=== PATIENT | male | born 1950 | race Caucasian/White ===

== ENCOUNTER 2017-08-16 10:22 | Inpatient (IN) | payer OTHER ==
[2017-08-16] VITALS (12 sets, daily range): BP systolic 90–122; BP diastolic 50–74
[~2017-08-16] VITALS: Ht 172.7 cm; Wt 87.3 kg
[~2017-08-16 10:22] MED LIST: ALBUTEROL2.5 MG/0.5 INH; ANAPROX DS550 MG PO; ASPIRIN ADULT L81 M1 PO; DARVOCET N 1001 TAB PO; LASIX40 MG PO; LIPITOR80 MG PO; LOPRESSOR25 MG PO; NORVASC10 MG PO; PRINIVIL20 M1 PO; PROVENTIL0.09 MG/A1 INH; SPIRIVA18 MCG PO; SYMB160 INH
[2017-08-16 10:47] LABS: BASO # 0.1 10*3/uL (0.0-0.1); BASO % 0.8 % (0.0-1.0); EOS # 0.2 10*3/uL (0.0-0.4); EOS % 1.6 % (1.0-4.0); HEMOGLOBIN 17.7 g/dl (14.0-18.0); LYMPH # 2.1 10*3/uL (1.3-4.4); LYMPH % 20.4 % (27.0-41.0); MEAN CELL VOLUME 84.2 fl (80.0-94.0); MEAN CORPUSCULAR HGB 27.1 pg (27.0-31.0); MEAN CORPUSCULAR HGB CONC 32.2 g/dl (33.0-37.0); MEAN PLATELET VOLUME 10.4 fl (9.6-12.3); MONO # 0.8 10*3/uL (0.1-1.0); MONO % 7.7 % (3.0-9.0); NEUT % 69.1 % (47.0-73.0); PLATELET COUNT AUTOMATED 216 10*3/uL (130-400); RED BLOOD COUNT 6.53 10*6/uL (4.50-5.90); RED CELL DISTRI WIDTH 15.3 % (0-14.5); WHITE BLOOD COUNT 10.1 10*3/uL (4.8-10.8)
[2017-08-16 11:06] LABS: ALBUMIN 3.5 gm/dl (3.1-4.5); ALKALINE PHOSPHATASE 98 U/L (45-117); BUN 14 mg/dl (7-24); CHLORIDE 104 mmol/L (98-107); CREATININE 1.03 mg/dL (0.70-1.30); POTASSIUM 4.3 mmol/L (3.5-5.1); SGOT/AST 18 IU/L (3-35); SGPT/ALT 31 U/L (12-78); SODIUM 138 mmol/L (136-145); TOTAL PROTEIN 7.3 gm/dL (6.4-8.2)
[2017-08-16 11:07] LABS: TROPONIN I < 0.015 ng/ml (<0.045)
[2017-08-16 15:18] LABS: ABG O2 SATURATION 92.3 % (95-97); ARTERIAL BLOOD GAS PCO2 43.4 mmHg (35-45); ARTERIAL BLOOD GAS PH 7.378 (7.35-7.45); ARTERIAL BLOOD GAS PO2 62.9 mmHg (80-90)
[2017-08-17] VITALS: BP 97/63
[2017-08-17 03:54] VITALS: BP 102/44
[2017-08-17 05:11] LABS: BUN 13 mg/dl (7-24); CHLORIDE 106 mmol/L (98-107); CHOLESTEROL 97 mg/dL (<200); CREATININE 0.85 mg/dL (0.70-1.30); HDL CHOLESTEROL 28 mg/dl (40-60); IRON 54 ug/dL (65-175); LDL CHOLESTEROL 44 mg/dL (9-159); PHOSPHOROUS 3.5 mg/dL (2.5-4.9); POTASSIUM 4.8 mmol/L (3.5-5.1); SODIUM 138 mmol/L (136-145); TOTAL IRON BINDING CAPACITY 346 ug/dl (250-450); TRIGLYCERIDES 127 mg/dl (<150); VLDL CHOLESTEROL 25 mg/dL (6-40)
[2017-08-17 06:00] LABS: ACT PARTIAL THROMBO TIME 25.4 SECONDS (20.8-31.5)
[2017-08-17 06:18] LABS: BASO # 0.1 10*3/uL (0.0-0.1); BASO % 0.6 % (0.0-1.0); EOS # 0.3 10*3/uL (0.0-0.4); EOS % 2.7 % (1.0-4.0); LYMPH # 1.7 10*3/uL (1.3-4.4); LYMPH % 17.7 % (27.0-41.0); MEAN CELL VOLUME 85.4 fl (80.0-94.0); MEAN CORPUSCULAR HGB 27.5 pg (27.0-31.0); MEAN CORPUSCULAR HGB CONC 32.2 g/dl (33.0-37.0); MONO # 0.6 10*3/uL (0.1-1.0); MONO % 6.8 % (3.0-9.0); NEUT # 6.8 10*3/uL (2.3-7.9); NEUT % 71.9 % (47.0-73.0); PLATELET COUNT AUTOMATED 178 10*3/uL (130-400); RED BLOOD COUNT 5.67 10*6/uL (4.50-5.90); RED CELL DISTRI WIDTH 14.7 % (0-14.5); WHITE BLOOD COUNT 9.4 10*3/uL (4.8-10.8)
[2017-08-17 06:34] LABS: HEMATOCRIT 48.4 % (42.0-52.0); HEMOGLOBIN 15.6 g/dl (14.0-18.0)
[2017-08-17 07:45] LABS: VITAMIN D, 25-HYDROXY 24.8 ng/mL (30-100)
[2017-08-17 08:00] VITALS: BP 117/63
[2017-08-17] MEDS ORDERED: XARE20MG PO (08:36)
[2017-08-17] MEDS ORDERED: VITAMIN D-32000 UNIT PO (08:36)
[2017-08-17] MEDS ORDERED: TOPROL XL50 M1 PO (08:36)
== END 2017-08-17 09:35 | disposition home or self-care (01) | DRG 308 ==
LOC: ED 10:22 → EDHOLD 12:16 → ICCU 12:23
PROVIDERS: Emergency Medicine; Internal Medicine
DX: I48.91 Unspecified atrial fibrillation (principal); I50.33 Acute on chronic diastolic (congestive) heart failure; E44.0 Moderate protein-calorie malnutrition; J44.9 Chronic obstructive pulmonary disease, unspecified; I11.0 Hypertensive heart disease with heart failure; D75.1 Secondary polycythemia; I25.10 Atherosclerotic heart disease of native coronary artery without angina pectoris; E66.3 Overweight; E78.5 Hyperlipidemia, unspecified; I50.9 Heart failure, unspecified; Z79.899 Other long term (current) drug therapy; Z95.5 Presence of coronary angioplasty implant and graft; Z98.52 Vasectomy status; Z80.8 Family history of malignant neoplasm of other organs or systems; Z79.82 Long term (current) use of aspirin; Z72.0 Tobacco use; Z71.6 Tobacco abuse counseling; Z68.29 Body mass index [BMI] 29.0-29.9, adult; Z79.51 Long term (current) use of inhaled steroids

== ENCOUNTER 2018-01-14 07:27 | Inpatient (IN) | payer OTHER ==
[2018-01-14] VITALS (24 sets, daily range): BP systolic 95–146; BP diastolic 42–79
[~2018-01-14] VITALS: Ht 172.7 cm; Wt 96.8 kg
--- NOTE | ~2018-01-14 | O ---
[place], [place] OPERATIVE NOTE NAME: [facility]IA BARNETT [id number] UNIT #: [id number] ROOM: 530 DOCTOR: NEDRA ESTRADA MD BIRTHDATE: [birth year] DOS: 01/14/2018 INDICATIONS: A 67-year-old patient who has presented with chief complaint of profound anemia, status post transfusion. The patient has been on Xarelto. Xarelto has been kept on hold. With H and H of 6 and 27, microcytic indices. PROCEDURE: Today's part of investigation is panendoscopy. PREMEDICATION: Propofol. SCOPE: Olympus forward-viewing gastroscope Q10 video. REPORT: After putting the patient in left lateral position and application of lubricant to the scope, the scope was introduced. Thereafter, under direct visualization, advanced through the length of esophagus into gastric pouch into duodenal bulb. Mild gastritis was seen. Duodenal bulb, second and third part within normal limit. No ulceration. No source of bleeding in the upper GI tract was seen. Air was suctioned out. No biopsies obtained due to the fact that the patient has been on Xarelto and aspirin. The patient extubated and tolerated the procedure well. IMPRESSION: Mild gastritis. PLAN AND DISCUSSION: Protonix 40 mg one every day would do. The patient has been transfused. Followup H and H are pending. Eventually, he needs a colonoscopy while he is off the medication. Therefore, we will make arrangement in about tomorrow preparation for the next day colonoscopy. NEDRA ESTRADA MD CM:OPRECORD:OPERATIVE NOTE [id number] NEDRA ESTRADA MD 01/14/18 1854 interface
--- NOTE | ~2018-01-14 | EKG ---
[place], [place] ELECTROCARDIOGRAM REPORT NAME: NIA BARNETT SR UNIT #: [id number] ROOM: [facility] DOCTOR: CATHY DRAFT REPORT BIRTHDATE: [birth year] [facility] Test Date: 2018-01-14 Test Time: 07:34:17 Pat Name: NIA BARNETT Department: Room: Gender: Client Project Coordinator: : [id number] Requested By: JULIANNE VILLATORO Order Number: [id number] Reading MD: Rajinder Baez MD Measurements Intervals [place] Rate: 85 P: 78 VT: 150 QRS: 94 QRSD: 94 T: 54 QT: 363 QTc: 432 Interpretive Statements Sinus rhythm Electronically Signed On 01-14-2018 19:20:46 PDT by Rajinder Baez MD CM:EKGRPT:ELECTROCARDIOGRAM REPORT [id number] 19 JULIANNE MORGAN DRAFT REPORT JULIANNE VILLATORO M.D.
--- NOTE | ~2018-01-14 | O ---
[place], [place] OPERATIVE NOTE NAME: [id number] UNIT #: [id number] ROOM: 530 DOCTOR: NEDRA ESTRADA MD BIRTHDATE: [birth year] DOS: 01/16/2018 INDICATIONS: This is a 67-year-old patient who was presented with exhaustion, tiredness and was found to have profound anemia and undergoing investigation. PROCEDURE: Today's procedure part of investigation is colonoscopy plus polypectomies x 2. PREMEDICATION: Propofol. SCOPE: Olympus folding colonoscope 10L video. REPORT: After putting the patient in left lateral position and application of lubricant to the scope, the scope was introduced. Thereafter, under direct visualization, advanced through the length of colon without difficulty to base of cecum. Ileocecal valve was defined. Appendiceal orifice identified. A sessile polypoid lesion of hepatic flexure and another sessile polypoid lesion from rectal pouch with piecemeal polypectomy removed, hypertrophic dentate line was noticed photographed. Air was suctioned out. The patient tolerated the procedure well. IMPRESSION: Scattered diverticulosis, dentated hypertrophic, dentated line, colonic sessile polyp at hepatic flexure and rectal pouch, status post piecemeal polypectomy. PLAN: Resumption of feeding and clinical reassessment. Thank you very much indeed for your kind referral. PLAN AND DISCUSSION: We are going to hold Xarelto 2 days since we have had polypectomy in this patient already today. NEDRA ESTRADA MD CM:OPRECORD:OPERATIVE NOTE [id number] NEDRA ESTRADA MD 01/16/18 1059 interface
--- NOTE | ~2018-01-14 | CON ---
[place], [place] REPORT OF CONSULTATION NAME: NIA BARNETT SR UNIT #: [id number] ROOM: 530 DOCTOR: NEDRA ESTRADA MD BIRTHDATE: [birth year] DOS: 01/14/2018 GASTROENDOSCOPIC CONSULTATION REPORT HISTORY OF PRESENT ILLNESS: The patient is 67 years old who presented with exhaustion, tiredness to the Emergency Room. A panel of blood work was done. He was found to have a hemoglobin of 6. He has a history of atrial fibrillation. He has been on Xarelto. I have been called for this assessment. PAST MEDICAL HISTORY: Congestive heart failure, COPD, coronary artery disease, atrial fibrillation, tiredness, profound anemia, pulmonary nodule, nicotine dependency, essential hypertension. PAST SURGICAL HISTORY: Coronary artery stent, vasectomy, cardiac catheterization. SOCIAL HISTORY: Smoker. FAMILY HISTORY: Noncontributory. ALLERGIES: To no known medication. MEDICATIONS: List has been reviewed, including aspirin and Xarelto amongst the other medications. REVIEW OF SYSTEMS: HEENT: Denies double vision or blurred vision. RESPIRATORY: Admits to shortness of breath. CARDIOVASCULAR: Denies chest pain. DIGESTIVE SYSTEM: Guaiac positive stool, melanotic stool. PHYSICAL EXAMINATION: VITAL SIGNS: Stable. HEENT: Head is normocephalic, nontraumatic. Mouth and buccal mucosa are benign. NECK: Supple. No thyromegaly. No cervical lymphadenopathy. CHEST: Symmetric anatomy, equal expansion. No wheeze. No rhonchi. HEART: Atrial fibrillation, moderate ventricular response. No murmur. EXTREMITIES: 2+ edema bilaterally. NEUROLOGIC: Fully alert, oriented to time, place and person. Sensory and motor intact. Cranial nerves 2-12 intact. IMPRESSION: 1. Profound anemia, tiredness. On aspirin and Xarelto. 2. Coronary artery disease. 3. Atrial fibrillation. 4. Nicotine dependency. PLAN AND DISCUSSION: We are going to proceed with panendoscopy to see source of blood loss to be defined. [place], [place] REPORT OF CONSULTATION NAME: NIA BARNETT SR UNIT #: [id number] ROOM: 530 DOCTOR: NEDRA ESTRADA MD BIRTHDATE: [birth year] Thank you very much indeed. NEDRA ESTRADA MD CM:CONSTR:REPORT OF CONSULTATION 1828 01/15/18 0318 interface
[~2018-01-14 07:27] MED LIST changes: +TOPROL XL50 M1 PO; +VITAMIN D-32000 UNIT PO; +XARE20MG PO
[2018-01-14 08:19] LABS: ALBUMIN 3.4 gm/dl (3.1-4.5); ALKALINE PHOSPHATASE 77 U/L (45-117); BUN 13 mg/dl (7-24); CHLORIDE 102 mmol/L (98-107); CREATININE 1.08 mg/dL (0.70-1.30); POTASSIUM 4.4 mmol/L (3.5-5.1); SGOT/AST 17 IU/L (3-35); SGPT/ALT 22 U/L (12-78); SODIUM 137 mmol/L (136-145); TOTAL PROTEIN 7.3 gm/dL (6.4-8.2)
[2018-01-14 08:21] LABS: TROPONIN I < 0.015 ng/ml (<0.045)
[2018-01-14 08:29] LABS: HEMOGLOBIN 6.8 g/dl (14.0-18.0); MEAN CELL VOLUME 63.8 fl (80.0-94.0); MEAN CORPUSCULAR HGB 16.1 pg (27.0-31.0); MEAN CORPUSCULAR HGB CONC 25.2 g/dl (33.0-37.0); NUCLEATED RED BLOOD CELL 0.2 % (0.0-0.0); PLATELET COUNT AUTOMATED 334 10*3/uL (130-400); RED BLOOD COUNT 4.23 10*6/uL (4.50-5.90); RED CELL DISTRI WIDTH 25.1 % (0-14.5); WHITE BLOOD COUNT 9.4 10*3/uL (4.8-10.8)
[2018-01-14 08:50] LABS: BASOPHILS 1 % (0-1); MICROCYTOSIS MARKED; PLATELET SUFFICIENCY NORMAL (NORMAL); TOTAL CELLS COUNTED 100 #CELLS
[2018-01-14 08:51] LABS: POLYCHROMASIA SLIGHT; SCHISTOCYTES FEW
[2018-01-14] MEDS ORDERED: METOPROLOL TART50 M1 PO (10:34)
[2018-01-15] VITALS: BP 125/50
[2018-01-15 06:22] LABS: BASO # 0.1 10*3/uL (0.0-0.1); BASO % 0.8 % (0.0-1.0); EOS # 0.2 10*3/uL (0.0-0.4); EOS % 2.9 % (1.0-4.0); HEMATOCRIT 32.3 % (42.0-52.0); HEMOGLOBIN 8.6 g/dl (14.0-18.0); LYMPH % 12.9 % (27.0-41.0); MEAN CORPUSCULAR HGB 18.3 pg (27.0-31.0); MEAN CORPUSCULAR HGB CONC 26.6 g/dl (33.0-37.0); MEAN PLATELET VOLUME 9.8 fl (9.6-12.3); MONO # 0.7 10*3/uL (0.1-1.0); MONO % 9.2 % (3.0-9.0); NEUT # 5.8 10*3/uL (2.3-7.9); NEUT % 73.8 % (47.0-73.0); NUCLEATED RED BLOOD CELL 0.3 % (0.0-0.0); PLATELET COUNT AUTOMATED 315 10*3/uL (130-400); RED CELL DISTRI WIDTH 27.4 % (0-14.5); WHITE BLOOD COUNT 7.9 10*3/uL (4.8-10.8)
[2018-01-15 06:23] LABS: MEAN CELL VOLUME 68.7 fl (80.0-94.0)
[2018-01-15 06:34] LABS: ACT PARTIAL THROMBO TIME 22.3 SECONDS (20.8-31.5)
[2018-01-15 06:35] LABS: ALBUMIN 3.4 gm/dl (3.1-4.5); ALKALINE PHOSPHATASE 79 U/L (45-117); BUN 11 mg/dl (7-24); CHLORIDE 102 mmol/L (98-107); CHOLESTEROL 63 mg/dL (<200); HDL CHOLESTEROL 26 mg/dl (40-60); LDL CHOLESTEROL 21 mg/dL (9-159); PHOSPHOROUS 4.1 mg/dL (2.5-4.9); POTASSIUM 4.4 mmol/L (3.5-5.1); SGOT/AST 15 IU/L (3-35); SGPT/ALT 22 U/L (12-78); SODIUM 139 mmol/L (136-145); TRIGLYCERIDES 78 mg/dl (<150); VLDL CHOLESTEROL 16 mg/dL (6-40)
[2018-01-15 06:40] LABS: FREE T4 1.12 ng/dl (0.76-1.46)
[2018-01-15 07:56] LABS: VITAMIN D, 25-HYDROXY 54.6 ng/mL (30-100)
[2018-01-15 08:00] VITALS: BP 123/56
[2018-01-15 12:00] VITALS: BP 117/59
[2018-01-15 16:00] VITALS: BP 125/65
[2018-01-15 21:48] VITALS: BP 148/71
[2018-01-16] VITALS: BP 139/69
[2018-01-16 06:22] LABS: BASO # 0.1 10*3/uL (0.0-0.1); BASO % 0.7 % (0.0-1.0); EOS # 0.2 10*3/uL (0.0-0.4); EOS % 2.5 % (1.0-4.0); HEMATOCRIT 33.5 % (42.0-52.0); HEMOGLOBIN 8.8 g/dl (14.0-18.0); LYMPH % 12.3 % (27.0-41.0); MEAN CELL VOLUME 69.4 fl (80.0-94.0); MEAN CORPUSCULAR HGB 18.2 pg (27.0-31.0); MEAN CORPUSCULAR HGB CONC 26.3 g/dl (33.0-37.0); MEAN PLATELET VOLUME 9.1 fl (9.6-12.3); MONO # 0.6 10*3/uL (0.1-1.0); MONO % 7.6 % (3.0-9.0); NEUT # 6.5 10*3/uL (2.3-7.9); NEUT % 76.7 % (47.0-73.0); PLATELET COUNT AUTOMATED 307 10*3/uL (130-400); RED BLOOD COUNT 4.83 10*6/uL (4.50-5.90); RED CELL DISTRI WIDTH 27.7 % (0-14.5); WHITE BLOOD COUNT 8.5 10*3/uL (4.8-10.8)
[2018-01-16 06:58] LABS: BUN 5 mg/dl (7-24); CHLORIDE 102 mmol/L (98-107); CREATININE 0.84 mg/dL (0.70-1.30); SODIUM 139 mmol/L (136-145)
[2018-01-16 07:04] LABS: POTASSIUM 4.4 mmol/L (3.5-5.1)
[2018-01-16 08:00] VITALS: BP 137/69
[2018-01-16 10:38] VITALS: BP 150/76
[2018-01-16 10:54] VITALS: BP 132/78
[2018-01-16 11:10] VITALS: BP 155/74
[2018-01-16 16:00] VITALS: BP 128/66
[2018-01-16] MEDS ORDERED: XARE20MG PO (16:04)
== END 2018-01-16 16:49 | disposition home or self-care (01) | DRG 378 ==
LOC: ED 07:27 → EDHOLD 09:27 → 5E 09:27
PROVIDERS: Emergency Medicine; Internal Medicine
PROC: 0DJ08ZZ Inspection of Upper Intestinal Tract, Via Natural or Artificial Opening Endoscopic (ICD-10-PCS; principal; 2018-01-14)
PROC: 30233N1 Transfusion of Nonautologous Red Blood Cells into Peripheral Vein, Percutaneous Approach (ICD-10-PCS; principal; 2018-01-14)
PROC: 0DBP8ZZ Excision of Rectum, Via Natural or Artificial Opening Endoscopic (ICD-10-PCS; 2018-01-16)
PROC: 0DBL8ZZ Excision of Transverse Colon, Via Natural or Artificial Opening Endoscopic (ICD-10-PCS; 2018-01-16)
DX: K29.71 Gastritis, unspecified, with bleeding (principal); E44.0 Moderate protein-calorie malnutrition; J96.11 Chronic respiratory failure with hypoxia; I50.9 Heart failure, unspecified; I48.91 Unspecified atrial fibrillation; I11.0 Hypertensive heart disease with heart failure; K57.31 Diverticulosis of large intestine without perforation or abscess with bleeding; D50.9 Iron deficiency anemia, unspecified; D12.3 Benign neoplasm of transverse colon; D64.9 Anemia, unspecified; J44.9 Chronic obstructive pulmonary disease, unspecified; E78.5 Hyperlipidemia, unspecified; I25.10 Atherosclerotic heart disease of native coronary artery without angina pectoris; R91.1 Solitary pulmonary nodule; Z72.0 Tobacco use; Z71.6 Tobacco abuse counseling; Z79.01 Long term (current) use of anticoagulants; Z98.52 Vasectomy status; Z82.49 Family history of ischemic heart disease and other diseases of the circulatory system; Z80.8 Family history of malignant neoplasm of other organs or systems; Z79.82 Long term (current) use of aspirin; Z79.899 Other long term (current) drug therapy

== ENCOUNTER → 2019-02-26 | Day surgery (SDC) | payer OTHER ==
[~2019-02-26] VITALS: Ht 172.7 cm; Wt 85.7 kg
[~2019-02-26] MED LIST changes: +LANOXIN250 MCG PO; +LEVOFLOXACIN500 MG PO; +METOPROLOL TART50 M1 PO; +PREDNISONE10 MG PO; +PRILOSEC20 M1 PO; +PROVENTIL HFA6.7 GM INH; -PROVENTIL0.09 MG/A1 INH; +VITAMIN D32000 UNI1 PO; +XARELTO20 M1 PO
--- NOTE | ~2019-02-26 | O ---
[place], [place] OPERATIVE NOTE NAME: NIA BARNETT SR UNIT #: [id number] ROOM: DOCTOR: NEDRA ESTRADA MD BIRTHDATE: [birth year] DOS: 02/26/2019 INDICATIONS: This is a 68-year-old patient who has presented with chief complaint of black tarry stool, undergoing investigation. The patient has been on aspirin and historically that has been placed on hold for multiple months; however, he is on Xarelto 20 mg daily. ALLERGIES: No known medication. FAMILY HISTORY: Noncontributory. PAST SURGICAL HISTORY: Vasectomy. PAST MEDICAL HISTORY: Atrial fibrillation, cardiac stents. SOCIAL HISTORY: Smoker, nonalcohol consumer. MEDICATIONS: Reviewed. PROCEDURE: Today's procedure part of investigation is panendoscopy plus biopsy. PREMEDICATION: Propofol. SCOPE: Olympus forward-viewing gastroscope Q10 video. REPORT: After putting the patient in left lateral position and application of lubricant to the scope, the scope was introduced. Thereafter, under direct visualization, advanced through the length of esophagus without difficulty. Esophagus, cervical, thoracic distally carefully examined. Gastric pouch was entered. Evidence of gastritis seen. Duodenal bulb, second and third part within normal limits. Back to the gastric pouch, bile reflux was suctioned out and ____ biopsy. The patient extubated, tolerated the procedure well. IMPRESSION: Bile reflux gastritis, small hiatal hernia. PLAN AND DISCUSSION: This patient would be helped with omeprazole 40 mg daily. Antireflux measures, elevation of the head of the bed 6 inch all time, Gaviscon as antacid of choice. FOLLOWUP: Routinely with you in office, p.r.n. visit with us in GI Clinic. [place], [place] OPERATIVE NOTE NAME: NIA BARNETT SR UNIT #: [id number] ROOM: DOCTOR: NEDRA ESTRADA MD BIRTHDATE: [birth year] NEDRA ESTRADA MD CM:OPRECORD:OPERATIVE NOTE 1003 [id number] NEDRA ESTRADA MD 02/26/19 1108 interface
[2019-02-26 09:26] VITALS: BP 99/39
[2019-02-26 10:02] VITALS: BP 101/60
[2019-02-26 10:15] VITALS: BP 96/58
[2019-02-26 10:32] VITALS: BP 110/53
== END | disposition home or self-care (01) ==
LOC: SDC 02-19 08:45
DX: K29.51 Unspecified chronic gastritis with bleeding (principal); K44.9 Diaphragmatic hernia without obstruction or gangrene; K21.9 Gastro-esophageal reflux disease without esophagitis; I48.91 Unspecified atrial fibrillation; I11.0 Hypertensive heart disease with heart failure; I50.9 Heart failure, unspecified; F17.210 Nicotine dependence, cigarettes, uncomplicated; Z98.890 Other specified postprocedural states; Z79.84 Long term (current) use of oral hypoglycemic drugs; Z79.899 Other long term (current) drug therapy; Z79.01 Long term (current) use of anticoagulants; Z82.49 Family history of ischemic heart disease and other diseases of the circulatory system

== ENCOUNTER → 2022-02-06 | Outpatient (CLI) | payer OTHER | END | disposition home or self-care (01) | LOC: COVID19 01:08 | PROVIDERS: ATTEND Internal Medicine | DX: Z20.822 Contact with and (suspected) exposure to COVID-19 (principal) ==

== ENCOUNTER 2023-06-30 11:41 | Inpatient (IN) | payer OTHER ==
[2023-06-30] VITALS (10 sets, daily range): BP systolic 114–130; BP diastolic 56–75
[~2023-06-30] VITALS: Ht 172.7 cm; Wt 83.5 kg
[2023-06-30 12:49] LABS: BASO % 0.3 % (0.0-1.0); EOS % 0.2 % (1.0-4.0); HEMATOCRIT 59.6 % (42.0-52.0); LYMPH # 1.1 10*3/uL (1.3-4.4); LYMPH % 12.1 % (27.0-41.0); MEAN CELL VOLUME 82.5 fl (80.0-94.0); MEAN CORPUSCULAR HGB 24.8 pg (27.0-31.0); MEAN PLATELET VOLUME 10.1 fl (9.6-12.3); MONO # 0.7 10*3/uL (0.1-1.0); MONO % 7.2 % (3.0-9.0); NEUT # 7.4 10*3/uL (2.3-7.9); NEUT % 79.8 % (47.0-73.0); PLATELET COUNT AUTOMATED 210 10*3/uL (130-400); RED BLOOD COUNT 7.22 10*6/uL (4.50-5.90); RED CELL DISTRI WIDTH 19.1 % (0-14.5); WHITE BLOOD COUNT 9.3 10*3/uL (4.8-10.8)
[2023-06-30 13:14] LABS: ALKALINE PHOSPHATASE 102 U/L (46-116); BUN 28 mg/dl (9-23); CHLORIDE 100 mmol/L (98-107); POTASSIUM 4.5 mmol/L (3.4-5.1); SGPT/ALT 17 U/L (5-49); TOTAL PROTEIN 7.4 gm/dL (6.0-8.0)
[2023-06-30 13:22] LABS: ABG BASE EXCESS -0.1 mmol/L (-2.0-2.0); ARTERIAL BLOOD GAS PH 7.341 (7.35-7.45)
[2023-06-30 16:08] LABS: BILIRUBIN Negative (Negative); BLOOD Negative (Negative); CLARITY Clear (Clear); COLOR Yellow (Yellow); GLUCOSE Negative (Negative); KETONE Negative (Negative); LEUKO ESTERASE Negative (Negative); NITRITE Negative (Negative); PH 5.5 (4.5-8.0); SPECIFIC GRAVITY 1.015 (1.001-1.030)
[2023-06-30 16:21] LABS: BACTERIA 1+
[2023-06-30 16:22] LABS: EPITHELIAL CELLS 0-2; WBC 0-2 wbc/hpf (0-5)
[2023-07-01] VITALS: BP 114/60
[2023-07-01 08:00] VITALS: BP 136/75
[2023-07-01 08:16] LABS: BASO % 0.1 % (0.0-1.0); HEMATOCRIT 57.2 % (42.0-52.0); LYMPH # 0.8 10*3/uL (1.3-4.4); LYMPH % 8.1 % (27.0-41.0); MEAN CELL VOLUME 82.9 fl (80.0-94.0); MEAN CORPUSCULAR HGB 24.5 pg (27.0-31.0); MEAN CORPUSCULAR HGB CONC 29.5 g/dl (33.0-37.0); MEAN PLATELET VOLUME 9.9 fl (9.6-12.3); MONO # 0.6 10*3/uL (0.1-1.0); MONO % 6.6 % (3.0-9.0); NEUT # 7.8 10*3/uL (2.3-7.9); NEUT % 84.8 % (47.0-73.0); PLATELET COUNT AUTOMATED 210 10*3/uL (130-400); RED CELL DISTRI WIDTH 18.6 % (0-14.5); WHITE BLOOD COUNT 9.2 10*3/uL (4.8-10.8)
[2023-07-01 08:42] LABS: BUN 26 mg/dl (9-23); CHLORIDE 101 mmol/L (98-107); CHOLESTEROL 100 mg/dL (<200); LDL CHOLESTEROL 62 mg/dL (9-159); POTASSIUM 4.5 mmol/L (3.4-5.1); TRIGLYCERIDES 91 mg/dl (<150)
[2023-07-01 12:00] VITALS: BP 143/58
[2023-07-01 16:00] VITALS: BP 144/64
[2023-07-01 20:00] VITALS: BP 127/55
[2023-07-02] VITALS: BP 114/51
[2023-07-02 06:46] LABS: HEMATOCRIT 53.7 % (42.0-52.0); MANUAL DIFF REFLEX YES; MEAN CELL VOLUME 82.2 fl (80.0-94.0); MEAN CORPUSCULAR HGB 24.7 pg (27.0-31.0); MEAN PLATELET VOLUME 10.5 fl (9.6-12.3); PLATELET COUNT AUTOMATED 213 10*3/uL (130-400); RED BLOOD COUNT 6.53 10*6/uL (4.50-5.90); RED CELL DISTRI WIDTH 18.8 % (0-14.5); WHITE BLOOD COUNT 13.3 10*3/uL (4.8-10.8)
[2023-07-02 06:57] LABS: BUN 16 mg/dl (9-23); CHLORIDE 102 mmol/L (98-107); POTASSIUM 4.3 mmol/L (3.4-5.1)
[2023-07-02 08:00] VITALS: BP 128/64
[2023-07-02 08:10] LABS: TOTAL CELLS COUNTED 100 #CELLS
[2023-07-02 08:11] LABS: BURR CELLS MODERATE; OVALOCYTES FEW; PLATELET SUFFICIENCY NORMAL (NORMAL); POLYCHROMASIA SLIGHT
[2023-07-02 12:00] VITALS: BP 132/56
[2023-07-02 16:00] VITALS: BP 100/68
[2023-07-02 20:00] VITALS: BP 113/74
[2023-07-02 21:30] LABS: ABG BASE EXCESS 7.1 mmol/L (-2.0-2.0); ARTERIAL BLOOD GAS PH 7.428 (7.35-7.45)
[2023-07-03] VITALS: BP 104/56
[2023-07-03 06:44] LABS: HEMATOCRIT 57.5 % (42.0-52.0); MEAN CELL VOLUME 81.8 fl (80.0-94.0); MEAN CORPUSCULAR HGB 24.3 pg (27.0-31.0); MEAN CORPUSCULAR HGB CONC 29.7 g/dl (33.0-37.0); MEAN PLATELET VOLUME 10.1 fl (9.6-12.3); PLATELET COUNT AUTOMATED 251 10*3/uL (130-400); RED BLOOD COUNT 7.03 10*6/uL (4.50-5.90); RED CELL DISTRI WIDTH 19.3 % (0-14.5); WHITE BLOOD COUNT 16.6 10*3/uL (4.8-10.8)
[2023-07-03 06:47] LABS: MANUAL DIFF REFLEX YES
[2023-07-03 07:09] LABS: BUN 23 mg/dl (9-23); CHLORIDE 99 mmol/L (98-107)
[2023-07-03 07:47] LABS: BURR CELLS FEW; PLATELET SUFFICIENCY NORMAL (NORMAL); POLYCHROMASIA SLIGHT; TOTAL CELLS COUNTED 100 #CELLS
[2023-07-03 08:00] VITALS: BP 125/60
[2023-07-03 12:00] VITALS: BP 128/59
[2023-07-03 16:00] VITALS: BP 131/70
[2023-07-03 20:00] VITALS: BP 132/70
[2023-07-04] VITALS (9 sets, daily range): BP systolic 129–143; BP diastolic 66–78
[2023-07-04 05:36] LABS: BUN 30 mg/dl (9-23); CHLORIDE 91 mmol/L (98-107)
[2023-07-05] VITALS: BP 149/81
[2023-07-05 05:10] LABS: BUN 30 mg/dl (9-23); CHLORIDE 91 mmol/L (98-107); POTASSIUM 5.1 mmol/L (3.4-5.1)
[2023-07-05 08:00] VITALS: BP 132/78
[2023-07-05 09:08] LABS: ACID FAST SPEC PROCESSING Concentration (.)
[2023-07-05 12:00] VITALS: BP 124/72
[2023-07-05 16:00] VITALS: BP 124/83
[2023-07-05 20:00] VITALS: BP 120/59
[2023-07-06] VITALS: BP 118/74
[2023-07-06 06:25] LABS: MEAN CELL VOLUME 80.7 fl (80.0-94.0); MEAN CORPUSCULAR HGB 24.3 pg (27.0-31.0); MEAN CORPUSCULAR HGB CONC 30.1 g/dl (33.0-37.0); MEAN PLATELET VOLUME 10.8 fl (9.6-12.3); PLATELET COUNT AUTOMATED 293 10*3/uL (130-400); RED BLOOD COUNT 7.57 10*6/uL (4.50-5.90); RED CELL DISTRI WIDTH 18.5 % (0-14.5); WHITE BLOOD COUNT 16.9 10*3/uL (4.8-10.8)
[2023-07-06 06:32] LABS: HEMATOCRIT 61.1 % (42.0-52.0); MANUAL DIFF REFLEX YES
[2023-07-06 07:46] LABS: PLATELET SUFFICIENCY NORMAL (NORMAL); TOTAL CELLS COUNTED 100 #CELLS
[2023-07-06 07:48] LABS: POLYCHROMASIA SLIGHT
[2023-07-06 07:52] LABS: BURR CELLS FEW
[2023-07-06 07:55] LABS: BUN 37 mg/dl (9-23); CHLORIDE 92 mmol/L (98-107); POTASSIUM 4.2 mmol/L (3.4-5.1)
[2023-07-06 08:00] VITALS: BP 121/87
[2023-07-06 12:00] VITALS: BP 114/82
[2023-07-06 16:00] VITALS: BP 128/78
[2023-07-06 20:00] VITALS: BP 131/80
[2023-07-07] VITALS: BP 115/64
[2023-07-07 07:54] LABS: POTASSIUM 3.8 mmol/L (3.4-5.1)
[2023-07-07 08:00] VITALS: BP 130/68
[2023-07-07 10:16] LABS: MEAN CELL VOLUME 81.2 fl (80.0-94.0); MEAN CORPUSCULAR HGB 24.2 pg (27.0-31.0); MEAN CORPUSCULAR HGB CONC 29.8 g/dl (33.0-37.0); MEAN PLATELET VOLUME 11.4 fl (9.6-12.3); PLATELET COUNT AUTOMATED 340 10*3/uL (130-400); RED BLOOD COUNT 7.86 10*6/uL (4.50-5.90); RED CELL DISTRI WIDTH 18.7 % (0-14.5); WHITE BLOOD COUNT 23.7 10*3/uL (4.8-10.8)
[2023-07-07 10:19] LABS: HEMATOCRIT 63.8 % (42.0-52.0); MANUAL DIFF REFLEX YES
[2023-07-07 10:42] LABS: PLATELET SUFFICIENCY NORMAL (NORMAL); TOTAL CELLS COUNTED 100 #CELLS
[2023-07-07 10:43] LABS: ACANTHOCYTES FEW; BURR CELLS MODERATE
[2023-07-07 12:00] VITALS: BP 120/80
[2023-07-07 16:00] VITALS: BP 123/76
[2023-07-07 20:00] VITALS: BP 129/73
[2023-07-08] VITALS: BP 119/67
[2023-07-08 08:00] VITALS: BP 122/72
[2023-07-08 09:07] LABS: MEAN CELL VOLUME 79.6 fl (80.0-94.0); MEAN CORPUSCULAR HGB 24.6 pg (27.0-31.0); MEAN CORPUSCULAR HGB CONC 30.9 g/dl (33.0-37.0); MEAN PLATELET VOLUME 10.4 fl (9.6-12.3); PLATELET COUNT AUTOMATED 366 10*3/uL (130-400); RED BLOOD COUNT 7.88 10*6/uL (4.50-5.90); RED CELL DISTRI WIDTH 18.6 % (0-14.5)
[2023-07-08 09:22] LABS: MANUAL DIFF REFLEX YES
[2023-07-08 09:23] LABS: HEMATOCRIT 62.7 % (42.0-52.0)
[2023-07-08 09:29] LABS: ATYPICAL LYMPHS 2 % (0-0); MORPHOLOGY COMMENT M; TOTAL CELLS COUNTED 100 #CELLS
[2023-07-08 09:30] LABS: BURR CELLS FEW; MICROCYTOSIS SLIGHT; POTASSIUM 3.8 mmol/L (3.4-5.1); ROULEAUX SLIGHT; VACUOLATION OF NEUTROPHILS SLIGHT
[2023-07-08 09:31] LABS: PLATELET SUFFICIENCY NORMAL (NORMAL)
[2023-07-08 12:00] VITALS: BP 129/75
[2023-07-08] MEDS ORDERED: ASPIRIN ADULT L81 M2 PO (13:08)
[2023-07-08] MEDS ORDERED: PREDNISONE10 MG PO (13:08)
[2023-07-08] MEDS ORDERED: CEFUROXIME AXE250 MG PO (13:08)
== END 2023-07-08 14:12 | disposition home or self-care (01) | DRG 291 ==
LOC: ED 11:41 → 5E 14:53 → EDHOLD 14:53 → 5E 20:22
PROVIDERS: Emergency Medicine; Internal Medicine; Internal Medicine Critical Care Medicine; Registered Nurse; Student in an Organized Health Care Education/Training Program; ADMIT Internal Medicine; ATTEND Internal Medicine
PROC: 5A0935A Assistance with Respiratory Ventilation, Less than 24 Consecutive Hours, High Flow/Velocity Cannula (ICD-10-PCS; 2023-06-30)
PROC: 5A09357 Assistance with Respiratory Ventilation, Less than 24 Consecutive Hours, Continuous Positive Airway Pressure (ICD-10-PCS; 2023-06-30)
PROC: 5A0945A Assistance with Respiratory Ventilation, 24-96 Consecutive Hours, High Flow/Velocity Cannula (ICD-10-PCS; 2023-07-01)
PROC: 5A0935A Assistance with Respiratory Ventilation, Less than 24 Consecutive Hours, High Flow/Velocity Cannula (ICD-10-PCS; 2023-07-03)
PROC: 0BC18ZZ Extirpation of Matter from Trachea, Via Natural or Artificial Opening Endoscopic (ICD-10-PCS; principal; 2023-07-04)
PROC: 0BC98ZZ Extirpation of Matter from Lingula Bronchus, Via Natural or Artificial Opening Endoscopic (ICD-10-PCS; 2023-07-04)
PROC: 0BC48ZZ Extirpation of Matter from Right Upper Lobe Bronchus, Via Natural or Artificial Opening Endoscopic (ICD-10-PCS; 2023-07-04)
PROC: 0BC88ZZ Extirpation of Matter from Left Upper Lobe Bronchus, Via Natural or Artificial Opening Endoscopic (ICD-10-PCS; 2023-07-04)
PROC: 0BC58ZZ Extirpation of Matter from Right Middle Lobe Bronchus, Via Natural or Artificial Opening Endoscopic (ICD-10-PCS; 2023-07-04)
PROC: 0BC38ZZ Extirpation of Matter from Right Main Bronchus, Via Natural or Artificial Opening Endoscopic (ICD-10-PCS; 2023-07-04)
PROC: 0BC78ZZ Extirpation of Matter from Left Main Bronchus, Via Natural or Artificial Opening Endoscopic (ICD-10-PCS; 2023-07-04)
PROC: 0BC68ZZ Extirpation of Matter from Right Lower Lobe Bronchus, Via Natural or Artificial Opening Endoscopic (ICD-10-PCS; 2023-07-04)
PROC: 0BCB8ZZ Extirpation of Matter from Left Lower Lobe Bronchus, Via Natural or Artificial Opening Endoscopic (ICD-10-PCS; 2023-07-04)
PROC: 5A0935A Assistance with Respiratory Ventilation, Less than 24 Consecutive Hours, High Flow/Velocity Cannula (ICD-10-PCS; 2023-07-04)
PROC: 5A09357 Assistance with Respiratory Ventilation, Less than 24 Consecutive Hours, Continuous Positive Airway Pressure (ICD-10-PCS; 2023-07-04)
PROC: 5A09357 Assistance with Respiratory Ventilation, Less than 24 Consecutive Hours, Continuous Positive Airway Pressure (ICD-10-PCS; 2023-07-05)
PROC: 5A09357 Assistance with Respiratory Ventilation, Less than 24 Consecutive Hours, Continuous Positive Airway Pressure (ICD-10-PCS; 2023-07-06)
PROC: 5A09357 Assistance with Respiratory Ventilation, Less than 24 Consecutive Hours, Continuous Positive Airway Pressure (ICD-10-PCS; 2023-07-07)
PROC: 5A09357 Assistance with Respiratory Ventilation, Less than 24 Consecutive Hours, Continuous Positive Airway Pressure (ICD-10-PCS; 2023-07-08)
DX: I11.0 Hypertensive heart disease with heart failure (principal); I50.21 Acute systolic (congestive) heart failure; J96.21 Acute and chronic respiratory failure with hypoxia; J96.22 Acute and chronic respiratory failure with hypercapnia; J44.1 Chronic obstructive pulmonary disease with (acute) exacerbation; E87.29 Other acidosis; E87.3 Alkalosis; T17.500A Unspecified foreign body in bronchus causing asphyxiation, initial encounter; B96.1 Klebsiella pneumoniae [K. pneumoniae] as the cause of diseases classified elsewhere; J20.9 Acute bronchitis, unspecified; E87.71 Transfusion associated circulatory overload; R73.9 Hyperglycemia, unspecified; D75.1 Secondary polycythemia; I25.10 Atherosclerotic heart disease of native coronary artery without angina pectoris; E78.2 Mixed hyperlipidemia; F17.210 Nicotine dependence, cigarettes, uncomplicated; Z71.6 Tobacco abuse counseling; Y93.89 Activity, other specified; Y92.89 Other specified places as the place of occurrence of the external cause; Y99.8 Other external cause status; Z95.5 Presence of coronary angioplasty implant and graft; Z79.51 Long term (current) use of inhaled steroids; Z79.899 Other long term (current) drug therapy; Z68.28 Body mass index [BMI] 28.0-28.9, adult

== ENCOUNTER → 2024-04-01 | Outpatient (CLI) | payer MEDICARE ==
[~2024-04-01] MED LIST changes: +ASPIRIN ADULT L81 M2 PO; +CEFUROXIME AXE250 MG PO; +IOHEXOL 300 MG/ML 100 ML VIAL IV ONE; +IOHEXOL 300 MG/ML 100 ML VIAL ONE
== END | disposition home or self-care (01) ==
LOC: CT 02:15
PROVIDERS: ATTEND Internal Medicine Critical Care Medicine
DX: R91.8 Other nonspecific abnormal finding of lung field (principal); R06.02 Shortness of breath; J43.9 Emphysema, unspecified; I25.10 Atherosclerotic heart disease of native coronary artery without angina pectoris